=== PATIENT | female | born 1950 | race Caucasian/White ===

== ENCOUNTER 2016-10-20 21:52 | Emergency (ER) | payer OTHER ==
[~2016-10-20] VITALS: Ht 157.5 cm; Wt 55.5 kg
[2016-10-20 21:54] VITALS: TEMP 97.8
[2016-10-20] MEDS ORDERED: CELEXA40 MG PO (22:37)
[2016-10-20] MEDS ORDERED: WELLBUTRIN 100100 MG PO (22:37)
[2016-10-20] MEDS ORDERED: VASOTEC 5MG5 MG/TAB PO (22:37)
[2016-10-20] MEDS ORDERED: PRAVACHOL 40MG40 MG PO (22:37)
[2016-10-20] MEDS ORDERED: CARTIA XT240 MG PO (22:38)
[2016-10-20] MEDS ORDERED: AMBIEN 10MG10 MG PO (22:38)
[2016-10-20] MEDS ORDERED: PERCOCET 325 MG1 TA2 PO (23:42)
[2016-10-21 00:13] VITALS: BP 122/69; PULSE 80
== END 2016-10-21 00:35 | disposition home or self-care (01) ==
LOC: COL.ER 21:52
DX: S42.201A Unspecified fracture of upper end of right humerus, initial encounter for closed fracture (principal); W01.10XA Fall on same level from slipping, tripping and stumbling with subsequent striking against unspecified object, initial encounter; Y92.009 Unspecified place in unspecified non-institutional (private) residence as the place of occurrence of the external cause; I10 Essential (primary) hypertension
CPT/HCPCS: J2405; J3010; J7030